=== PATIENT | male | born 1960 | race Two or more races ===

== ENCOUNTER 2023-07-04 10:33 | Emergency (ER) | payer OTHER ==
[~2023-07-04] VITALS: Ht 180.3 cm; Wt 104.3 kg
[2023-07-04] MEDS ORDERED: ACIPHEX20 MG (10:58)
[2023-07-04] MEDS ORDERED: ROSUVASTATIN CAL5 MG (11:03)
[2023-07-04] MEDS ORDERED: ESCITALOPRAM OXA5 MG (11:04)
== END 2023-07-04 14:23 | disposition home or self-care (01) ==
LOC: ER 10:33
DX: M25.519 Pain in unspecified shoulder (principal); I10 Essential (primary) hypertension

== ENCOUNTER 2023-07-06 09:03 | Outpatient (CLI) | payer OTHER ==
[~2023-07-06 09:03] MED LIST: ACIPHEX20 MG; ESCITALOPRAM OXA5 MG; ROSUVASTATIN CAL5 MG
== END 2023-07-06 09:16 | disposition home or self-care (01) ==
LOC: MRI 09:03
PROVIDERS: ATTEND Physical Medicine & Rehabilitation
DX: M75.102 Unspecified rotator cuff tear or rupture of left shoulder, not specified as traumatic (principal); Z88.0 Allergy status to penicillin; Z88.2 Allergy status to sulfonamides; Z88.8 Allergy status to other drugs, medicaments and biological substances
CPT/HCPCS: 73218